=== PATIENT | female | born 1960 | race Asian ===

== ENCOUNTER → 2021-03-31 11:43 | Outpatient (BNVA) | payer SELFPAY | PROVIDERS: Visit Provider Nurse Practitioner Family ==

== ENCOUNTER 2022-09-21 07:56 | Outpatient (AMB) | payer MEDICAID, SELFPAY ==
--- NOTE | 2022-09-21 08:03 | MHC.OFFVIS ---
Intake Vital Signs 09/21/22 08:09 BP 118/82 Blood Pressure Location Lt brachial Position Sitting Pulse 77 Pulse Source Pulse Oximeter Pulse Oximetry (%) 100 Oxygen Delivery Method Room Air Intake Visit Reasons: Follow up - LVM Intake Note: Follow up for Parkinson Corporate Quality Assurance Manager Required: Yes Corporate Quality Assurance Manager Name: Bridget [phone] Allergies carbidopa [From Sinemet] Allergy (Intermediate, Verified 09/21/22 08:05) Unknown levodopa [From Sinemet] Allergy (Intermediate, Verified 09/21/22 08:05) Unknown HPI HPI Comments History of Present Illness Details 62 -yr-old female presents for f/u visit- pt last seen in Mar 2021. Pt reports she had a mechanical fall- tripped on a blanket and sustained a right tibia fx. Since, she has been living at [facility]. Pt states since she has not been able to walk as well since her ankle is now stiff. Pt's current PD medication regimen: Ropinirole 0.25mg- 2 tabs qid and Selegeline 5mg bid- per MAY, Pt's primary concerns are: She repeatedly mentions that she would like to go home. She also would like to resume vit D and MVI- which she used to take at home and felt she had better energy levels when taking these. ADL's: Needs assist Swallowing: No issues Drooling: None Orthostatic lightheadedness: Denies Constipation: Denies Freezing: Stiffness: Her right hand and ankle are stiff and postured Tremor: Botices more when holding something heavy Falls: Denies recent falls Hallucinations: Memory: Denies Sleep: It is hard to sleep d/t the noises from the other residents in the [place] Exercise: States not doing much PFSH Medical History (Updated 09/21/22 @ 09:24 by WILL Canela) Unspecified fracture of lower end of right tibia, sequela Surgical History (Updated 03/30/21 @ 11:29 by Dede Simms) H/O: hysterectomy Social History (Updated 09/21/22 @ 08:07 by Deya Wharton CMA) Alcohol intake: never Patient Tobacco Use Status: Never used Tobacco Review of Systems Const All systems reviewed & are unremarkable except as noted in HPI and below Physical Exam Vital Signs: Last Vital Signs Pulse 77 09/21/22 08:09 BP 118/82 09/21/22 08:09 Pulse Ox 100 09/21/22 08:09 Oxygen Delivery Method Room Air 09/21/22 08:09 Const General: cooperative and no acute distress Resp Effort & Inspection: normal respiratory effort and able to speak in complete sentences Neuro Other: Expression: Decreased expression and blink Voice: Soft Tremor: RUE and RLE rest tremor. RUE postural tremor Tone: BUE tone. Right hand/finger posturing. Right ankle posturing- ? PD posturing vs late effect from Right tibia fx. Dyskinesia: None FFM: Bradykinesia, right more so than left Foot taps: Bradykinesia Gait: Sitting w/ slight right tilt in w/c Psych: A&O, answers questions appropriatelvy, prone to repeating herself. 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 Pt declines any changes to her PD regimen today. Continue Ropinirole to 0.5mg QID. Continue Selegiline 5mg bid. Will defer request for Vit D and MVI to PCP. Previous PD med trials- CD-LD caused itching. Future considerations- increasing Ropinirole (pt has taken higher doses prior), revisisting PT/OT. f/u in 3-4 months or sooner prn. Coding Level of Care Code Est Pt Level 4 (67981) Diagnoses Parkinson disease G20 Poliomyelitis osteopathy of left lower leg M89.662; B91 Tremor R25.1 Hand deformities, acquired M21.949
[2022-09-21 08:09] VITALS: BP 118/82; PULSE 77; O2SAT 100
== END 2022-09-21 09:01 | disposition home or self-care (01) ==
LOC: HO.HSMS 07:56
PROVIDERS: Visit Provider Nurse Practitioner Family
DX: G20 Parkinson's disease (principal); M89.662 Osteopathy after poliomyelitis, left lower leg; B91 Sequelae of poliomyelitis; M21.949 Unspecified acquired deformity of hand, unspecified hand
CPT/HCPCS: 99214

== ENCOUNTER → 2022-09-21 07:56 | Outpatient (BNVA) | payer MEDICAID, SELFPAY | PROVIDERS: Visit Provider Nurse Practitioner Family | DX: G20 Parkinson's disease (principal); M89.662 Osteopathy after poliomyelitis, left lower leg; M21.949 Unspecified acquired deformity of hand, unspecified hand; B91 Sequelae of poliomyelitis | CPT/HCPCS: 99214 ==

== ENCOUNTER 2023-01-17 08:48 | Outpatient (AMB) | payer MEDICAID, SELFPAY ==
--- NOTE | 2023-01-17 08:48 | A.OFFVIS_ITS ---
Intake Intake Visit Reasons: Follow [id number] Intake Note: Patient presents for follow up. Patient states no issues or concerns Allergies carbidopa [From Sinemet] Allergy (Intermediate, Verified 01/17/23 08:49) Unknown levodopa [From Sinemet] Allergy (Intermediate, Verified 01/17/23 08:49) Unknown Medication List - Last Reconciled 01/17/23 by WILL Canela acetaminophen 650 mg PO Q6H PRN bisacodyl (Dulcolax (bisacodyl)) 10 mg MO DAILY PRN cholecalciferol (vitamin D3) 25 mcg PO DAILY cyanocobalamin (vitamin B-12) (Vitamin B-12) 100 mcg PO DAILY diclofenac sodium 3% 1 appl topical .q8hrs gabapentin 100 mg PO BEDTIME hydrocodone-acetaminophen 5-325 mg 1 tab PO Q8H PRN magnesium hydroxide (Milk of Magnesia) 30 mL PO DAILY PRN ropinirole 0.5 mg (2 x 0.25 mg) PO QID 30 days ropinirole 0.5 mg PO DAILY selegiline HCl 5 mg PO BID 30 days selegiline HCl 5 mg PO BID sodium phosphates 19-7 gram/118 mL (Fleet Enema) 118 mL MO BEDTIME PRN HPI HPI Comments History of Present Illness Details 62-yr-old female presents for f/u televi sit. ADL's: Needs assist Swallowing: No issues Orthostatic lightheadedness: Unsure it is hard to stand Constipation: Denies Freezing: unsure Stiffness: More stiff, slow, and weak Tremor: Increased Falls: Denies Hallucinations: Denies Memory: Stable Sleep: No issues Exercise: Doing home PT PFSH Medical History (Updated 01/22/23 @ 23:20 by WILL Canela) Unspecified fracture of lower end of right tibia, sequela Surgical History (Updated 03/30/21 @ 11:29 by Dede Simms) H/O: hysterectomy Social History (Updated 09/21/22 @ 08:07 by Deya Wharton [facility]) Alcohol intake: never Patient Tobacco Use Status: Never used Tobacco Review of Systems Const All systems reviewed & are unremarkable except as noted in HPI and below Physical Exam Const General: cooperative and no acute distress Resp Effort & Inspection: normal respiratory effort and able to speak in complete s entences Neuro Other: A&O Soft voice Assessment & Plan Assessment & Plan (1) Parkinson's disease without dyskinesia: Code(s): G20.A1 - Parkinson's disease without dyskinesia, without mention of fluctuations (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 Continue Selegiline 5mg bid. Pt requests we refill- Vit D and MVI- refileld. Previous PD med trials- CD-LD caused itching. ?f/u in 3-4 months or sooner prn. Medications: Changed From cholecalciferol (vitamin D3) 25 mcg PO DAILY To cholecalciferol (vitamin D3) 25 mcg PO DAILY 30 days 30 caps 6RF From ropinirole 0.5 mg (2 x 0.25 mg) PO QID 30 days 240 tabs 3RF To ropinirole 0.75 mg (3 x 0.25 mg) PO QID 30 days 360 tabs 3RF From selegiline HCl administer with breakfast and lunch 5 mg PO BID To selegiline HCl administer with breakfast and lunch 5 mg PO BID 30 days 60 caps 6RF Discontinued selegiline HCl administer with breakfast and lunch Discontinued Reason: Ancillary Entered New Order 5 mg PO BID 30 days 60 tabs 6RF Telehealth Telehealth Location of provider rendering services: practice address Location of patient: address on file Patient Identification confirmed using: Name, : Yes Telehealth method: voice only Patient verbally consented to treatment: Yes Patient verbally consented to billing insurance company: Yes Patient informed of any privacy concerns related to visit: Yes Minutes spent on Phone/Video with Pt.: 12 Coding Level of Care Code Tele Est Pt Level 4 (31454) Diagnoses Parkinson's disease without dyskinesia G20.A1 Poliomyelitis osteopathy of left lower leg M89.662; B91 Tremor R25.1
== END 2023-01-17 13:25 | disposition home or self-care (01) ==
LOC: HO.HSMS 08:48
PROVIDERS: Visit Provider Nurse Practitioner Family
DX: G20.A1 Parkinson's disease without dyskinesia, without mention of fluctuations (principal); M89.662 Osteopathy after poliomyelitis, left lower leg; B91 Sequelae of poliomyelitis; R25.1 Tremor, unspecified
CPT/HCPCS: 99214

== ENCOUNTER → 2023-01-17 08:48 | Outpatient (BNVA) | payer MEDICAID, SELFPAY | PROVIDERS: Visit Provider Nurse Practitioner Family ==